=== PATIENT | female | born 1970 | race American Indian/Alaskan Native ===

== ENCOUNTER 2021-01-27 10:02 | Outpatient (CLI) | payer OTHER ==
--- NOTE | 2021-01-27 11:37 | XRay Report ---
CERVICAL SPINE 3 VIEWS INDICATION: Neck pain. COMPARISON: None. IMPRESSION: There is normal alignment. Loss of the normal cervical lordosis is noted on the lateral image. 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 The remaining levels ar e unremarkable. The facet joints are within normal limits. No acute osseous or soft tissue abnormali ty. LUMBOSACRAL SPINE 3 VIEWS INDICATION: Back pain. COMPARISON: None. IMPRESSION: Normal alignment. Mild discogenic DJD and moderate hypertrophic facet arthropathy are i dentified at L3-4. The remaining disc levels are within normal limits. Mild facet arthropathy is susp ected at L2-3 and L4-5 as well. No acute osseous or soft tissue abnormality. BILATERAL KNEES 3 VIEWS INDICATION: Bilateral knee pain. COMPARISON: None. IMPRESSION: No acute osseous or soft tissue abnormality. Moderate osteoarthritic changes are iden tified in the medial compartment and patellofemoral compartment and the right knee. Mild osteoarthrit ic changes are identified in the medial compartment and patellofemoral compartment of the left knee. No significant joint effusion is detected. Signer Name: Crow Dai Jr, MD Signed: 01/27/2021 11:33 AM Workstation Name: [id number]
== END 2021-01-27 10:03 | disposition home or self-care (01) ==
LOC: XRAY 10:02
PROVIDERS: ATTEND Internal Medicine
DX: M17.0 Bilateral primary osteoarthritis of knee (principal); M47.812 Spondylosis without myelopathy or radiculopathy, cervical region; M40.40 Postural lordosis, site unspecified; M47.817 Spondylosis without myelopathy or radiculopathy, lumbosacral region
CPT/HCPCS: 72040; 72100